=== PATIENT | male | born 1985 | race Caucasian/White ===

== ENCOUNTER 2021-10-30 05:53 | Emergency (ER) | payer BC ==
[2021-10-30] MEDS ORDERED: Ondansetron 4 MG/2 ML SDV IVPUSH ONE (07:48)
[2021-10-30] MEDS ORDERED: Sodium Chloride 0.9% 1,000 ML IV STA (07:48)
[2021-10-30] MEDS ORDERED: Sodium Chloride 0.9% 10 ML Syringe FLUSH PRN (07:48)
[2021-10-30] MEDS ORDERED: Famotidine 20 MG/2 ML SDV IVPUSH ONE (07:49)
[2021-10-30] MEDS ORDERED: HYDROmorphone 0.5 MG/0.5 ML Syringe IVPUSH ONE ×2 (07:49→09:42)
[2021-10-30] MEDS ORDERED: Alum Hydrox/Mag Hydrox/Simeth 30 ML, Lidocaine 2% 15 ML PO ONE ×2 (07:50)
[2021-10-30 08:34] LABS: ESTIMATED GFR 90 mL/min (>60)
[2021-10-30] MEDS ORDERED: cefTRIAXone 1 GM in Sodium Chloride 0.9% 100 ML IV ONE (10:23)
== END 2021-10-30 11:45 | disposition home or self-care (01) ==
LOC: JD.ED 05:53
DX: K80.00 Calculus of gallbladder with acute cholecystitis without obstruction (principal)
CPT/HCPCS: 36415; 71045; 76705; 80053; 81001; 83690; 84484; 85025; 93005; 96361; 96365; 96375; 96376; 99284; A9270; J0696; J1170; J2405; J3490; J7030